=== PATIENT | female | born 1980 | race American Indian/Alaskan Native ===

== ENCOUNTER 2024-03-03 23:46 | Emergency (ER) | payer MEDICAID, OTHER | END 2024-03-04 00:41 | disposition left against medical advice (07) | LOC: JP.ED 23:46 | DX: Z53.21 Procedure and treatment not carried out due to patient leaving prior to being seen by health care provider (principal) ==

== ENCOUNTER 2024-05-16 11:07 | Inpatient (IN) | payer MEDICAID ==
[2024-05-16] MEDS ORDERED: Naloxone 0.4 MG/ML SDV IVPUSH PRN (11:09)
[2024-05-16] MEDS ORDERED: Sodium Chloride 0.9% 10 ML Syringe FLUSH PRN (11:09)
[2024-05-16 11:33] LABS: BASOPHILS ABSOLUTE AUTO 0.04 K/uL (0.00-0.10); BASOPHILS PERCENT AUTO 0.4 % (0.1-1.3); EOSINOPHILS ABSOLUTE AUTO 0.04 K/uL (0.00-0.40); EOSINOPHILS PERCENT AUTO 0.4 % (0.0-5.4); HEMATOCRIT 43.6 % (34.3-46.0); HEMOGLOBIN 15.3 g/dL (11.2-15.5); IMMATURE GRAN ABSOLUTE AUTO 0.04 K/uL (0.00-0.23); IMMATURE GRAN PERCENT AUTO 0.4 % (0.0-0.7); MEAN CORPUSCULAR HEMOGLOBIN 29.2 pg (31.6-35.5); MEAN CORPUSCULAR HGB CONC 35.1 g/dL (31.6-35.5); MEAN CORPUSCULAR VOLUME 83.2 fL (81.4-99.0); MONOCYTES ABSOLUTE AUTO 0.41 K/uL (0.20-0.90); MONOCYTES PERCENT AUTO 4.3 % (3.3-12.6); NEUTROPHILS ABSOLUTE AUTO 7.24 K/uL (1.0-7.6); NEUTROPHILS PERCENT AUTO 76.5 % (40.0-78.1); PLATELET COUNT,PLT 274 K/uL (130-375); RED BLOOD CELL COUNT 5.24 M/uL (3.77-5.24); WHITE BLOOD CELL COUNT,WBC 9.5 K/uL (3.2-11.0)
[2024-05-16 11:38] LABS: BASE EXCESS VENOUS -0.9 mm/L; BICARBONATE,VENOUS 22.7 mmol/L; CARBOXYHEMOGLOBIN 6.6 % (0.0-1.6); METHEMOGLOBIN 1.1 %; O2 SATURATION VENOUS 75.1; OXYHEMOGLOBIN 69.3 %; PCO2 VENOUS 36.6 mm/Hg; TOTAL HEMOGLOBIN 15.9 g/dL (12.0-16.0)
[2024-05-16 11:51] LABS: APPEARANCE,URINE CLEAR (CLEAR); BILIRUBIN,URINE NEGATIVE (NEGATIVE); COLOR,URINE YELLOW (YELLOW); GLUCOSE,URINE NEGATIVE (NEGATIVE); KETONES,URINE NEGATIVE (NEGATIVE); LEUKOCYTE ESTERASE,URINE NEGATIVE (NEGATIVE); NITRITE,URINE NEGATIVE (NEGATIVE); OCCULT BLOOD,URINE NEGATIVE (NEGATIVE); PH,URINE 6.5 (5.0-8.0); PROTEIN,URINE NEGATIVE (NEGATIVE); UROBILINOGEN,URINE 0.2 EU/dL (0.2-1.0)
[2024-05-16 11:57] LABS: AMORPHOUS SEDIMENT,URINE NOT SEEN; BACTERIA,URINE RARE; MUCUS,URINE NOT SEEN; RBC,URINE 0-5 (0-5); WBC,URINE 0-5 (0-5)
[2024-05-16 11:58] LABS: EPITHELIAL CELLS,URINE RARE
[2024-05-16 11:58] LABS: AMPHETAMINES SCREEN, URINE PRESUMPTIVE POSITIVE (NEGATIVE); BARBITURATE SCREEN,URINE NEGATIVE (NEGATIVE); BENZODIAZEPINES SCREEN,URINE NEGATIVE (NEGATIVE); METHADONE SCREEN, URINE NEGATIVE (NEGATIVE); METHAMPHETAMINES SCREEN, URINE PRESUMPTIVE POSITIVE (NEGATIVE); OXYCODONE SCREEN,URINE NEGATIVE (NEGATIVE); PROPOXYPHENE SCREEN,URINE NEGATIVE (NEGATIVE); THC SCREEN,URINE 50 NG/ML PRESUMPTIVE POSITIVE (NEGATIVE)
[2024-05-16 12:00] LABS: ALANINE AMINOTRANSFERASE,ALT 44 U/L (12-78); ALBUMIN 3.8 g/dL (3.4-5.0); ALKALINE PHOSPHATASE 103 U/L (46-116); ASPARTATE AMNIOTRANSFERASE,AST 32 U/L (15-37); BILIRUBIN TOTAL 0.8 mg/dL (0.2-1.0); BLOOD UREA NITROGEN,BUN 10 mg/dL (7-18); CALCIUM 10.1 mg/dL (8.5-10.1); CARBON DIOXIDE,CO2 26 mmol/L (21-32); CHLORIDE,CL 105 mmol/L (100-108); EST CRCL DRUG DOSING (CG) 67.29 mL/min; ESTIMATED GFR 73 mL/min (>60); GLUCOSE RANDOM 160 mg/dL (74-106); POTASSIUM,K 3.4 mmol/L (3.6-5.2); PROTEIN TOTAL,TP 7.8 g/dL (6.4-8.2); SODIUM,NA 138 mmol/L (140-148); T4 FREE 1.13 ng/dL (0.76-1.46)
[2024-05-16 12:01] LABS: ACETAMINOPHEN < 0.0 ug/mL (10.0-144.9); ANION GAP 10.4 mmol/L (5.0-14.0)
[2024-05-16] MEDS ORDERED: Potassium Chloride 20 MEQ in Premix Bag 1 BAG IV SCH (13:00)
[2024-05-16] MEDS: Potassium Chloride 10 MEQ in Premix Bag 1 BAG IV SCH (13:31)
[2024-05-16] MEDS: Midazolam 1 MG/ML 2 ML SDV IVPUSH ONE (14:08)
[2024-05-16] MEDS: Midazolam 1 MG/ML 2 ML SDV IVPUSH PRN (17:59)
[2024-05-16] MEDS: Dextrose 5%-0.9% NaCl 1,000 ML IV SCH (18:17)
[2024-05-16 18:44] LABS: ANION GAP 11.6 mmol/L (5.0-14.0); CALCIUM 9.8 mg/dL (8.5-10.1); CREATININE 0.7 mg/dL (0.6-1.0); EST CRCL DRUG DOSING (CG) 96.13 mL/min; MAGNESIUM 1.8 mg/dL (1.8-2.4); POTASSIUM,K 3.7 mmol/L (3.6-5.2)
[2024-05-16] MEDS ORDERED: Ondansetron 4 MG/2 ML SDV IVPUSH PRN (19:49)
[2024-05-16] MEDS: Sodium Chloride 0.9% 1,000 ML IV SCH (20:41)
[2024-05-16] MEDS: Enoxaparin 40 MG/0.4 ML Syringe SUBCUT SCH (20:53)
[2024-05-16] MEDS: Pantoprazole 40 MG Vial IVPUSH SCH (20:53)
[2024-05-16] MEDS: Magnesium Sulfate/Water 2 GM in Premix Bag 1 BAG IV ONE (22:06)
[2024-05-17 00:36] LABS: MAGNESIUM 3.1 mg/dL (1.8-2.4); POTASSIUM,K 4.1 mmol/L (3.6-5.2)
[2024-05-17 05:49] LABS: BASOPHILS ABSOLUTE AUTO 0.05 K/uL (0.00-0.10); BASOPHILS PERCENT AUTO 0.4 % (0.1-1.3); EOSINOPHILS ABSOLUTE AUTO 0.09 K/uL (0.00-0.40); EOSINOPHILS PERCENT AUTO 0.7 % (0.0-5.4); HEMATOCRIT 41.4 % (34.3-46.0); HEMOGLOBIN 14.2 g/dL (11.2-15.5); IMMATURE GRAN ABSOLUTE AUTO 0.04 K/uL (0.00-0.23); IMMATURE GRAN PERCENT AUTO 0.3 % (0.0-0.7); LYMPHOCYTES ABSOLUTE AUTO 1.91 K/uL (0.8-3.3); LYMPHOCYTES PERCENT AUTO 15.4 % (11.4-47.7); MEAN CORPUSCULAR HEMOGLOBIN 28.9 pg (31.6-35.5); MEAN CORPUSCULAR HGB CONC 34.3 g/dL (31.6-35.5); MEAN CORPUSCULAR VOLUME 84.3 fL (81.4-99.0); MONOCYTES PERCENT AUTO 7.2 % (3.3-12.6); NEUTROPHILS ABSOLUTE AUTO 9.44 K/uL (1.0-7.6); PLATELET COUNT,PLT 240 K/uL (130-375); RED BLOOD CELL COUNT 4.91 M/uL (3.77-5.24); WHITE BLOOD CELL COUNT,WBC 12.4 K/uL (3.2-11.0)
[2024-05-17 06:04] LABS: CALCIUM 8.9 mg/dL (8.5-10.1); CREATININE 0.7 mg/dL (0.6-1.0); EST CRCL DRUG DOSING (CG) 96.13 mL/min; MAGNESIUM 2.2 mg/dL (1.8-2.4); POTASSIUM,K 3.9 mmol/L (3.6-5.2)
[2024-05-17 06:05] LABS: ANION GAP 10.9 mmol/L (5.0-14.0)
[2024-05-17] MEDS: Sodium Chloride 0.9% 1,000 ML IV SCH (11:15)
[2024-05-17] MEDS: Enoxaparin 40 MG/0.4 ML Syringe SUBCUT SCH (21:22)
[2024-05-18 05:14] LABS: HEMATOCRIT 41.1 % (34.3-46.0); HEMOGLOBIN 14.4 g/dL (11.2-15.5); MEAN CORPUSCULAR HEMOGLOBIN 29.6 pg (31.6-35.5); MEAN CORPUSCULAR VOLUME 84.4 fL (81.4-99.0); RED BLOOD CELL COUNT 4.87 M/uL (3.77-5.24); WHITE BLOOD CELL COUNT,WBC 11.4 K/uL (3.2-11.0)
[2024-05-18 05:25] LABS: ANION GAP 14.6 mmol/L (5.0-14.0); CREATININE 0.7 mg/dL (0.6-1.0); EST CRCL DRUG DOSING (CG) 95.17 mL/min; POTASSIUM,K 3.6 mmol/L (3.6-5.2)
[2024-05-18 20:05] LABS: LITHIUM, SERUM OR PLASMA <0.1 mmol/L (0.5-1.2)
[2024-05-18] MEDS: Acetaminophen 325 MG Tab PO PRN (20:37)
== END 2024-05-19 15:00 | disposition home or self-care (01) | DRG 918 ==
LOC: JP.ED 11:07 → JP.ICU 18:58 → EDBD 18:58 → MERGE 18:58 → UNDOADMIN 18:58
PROVIDERS: ADMIT Internal Medicine; ATTEND Internal Medicine
PROC: 4A033R1 Measurement of Arterial Saturation, Peripheral, Percutaneous Approach (ICD-10-PCS; principal; 2024-05-16)
DX: T50.901A Poisoning by unspecified drugs, medicaments and biological substances, accidental (unintentional), initial encounter (principal); F41.9 Anxiety disorder, unspecified; F90.9 Attention-deficit hyperactivity disorder, unspecified type; F19.10 Other psychoactive substance abuse, uncomplicated; F31.9 Bipolar disorder, unspecified; R45.1 Restlessness and agitation; D72.829 Elevated white blood cell count, unspecified; F15.10 Other stimulant abuse, uncomplicated; E87.6 Hypokalemia; Z79.899 Other long term (current) drug therapy; Z78.1 Physical restraint status
CPT/HCPCS: 36415; 51702; 70450; 71045; 71045-26; 80048; 80053; 80143; 80178; 80179; 80305-QW; 80307; 81001; 82140; 82550; 82803; 83735; 84132; 84439; 84443; 84484; 84703; 85025; 85027; 93005; 93010; 96361; 96365; 96366; 96375; 96376; 99223; 99233; 99238; 99285; 99285-25; A9270-GY; J1650; J2250; J2470; J3475; J3480; J7030